=== PATIENT | female | born 1970 | race Caucasian/White ===

== ENCOUNTER 2023-11-13 22:16 | Emergency (ER) | payer SELFPAY ==
[2023-11-13] MEDS ORDERED: HYDROCODONE/APAP 10/325 TAB ONE (23:10)
[2023-11-13] MEDS ORDERED: KETOROLAC 30 MG/ML INJ ONE (23:10)
[2023-11-13 23:43] LABS: Absolute Eosinophils 0.1 K/uL (0-0.5); Absolute Lymphocytes (CBC) 1.3 K/uL (0.7-4.9); Absolute Monocytes 0.4 K/uL (0.1-1.3); Absolute Neutrophil 2.8 K/uL (1.8-8.0); Basophils % 0.5 % (0-1.3); Eosinophils % 2.7 % (0-4.4); Hematocrit 39.3 % (36.0-45.0); Hemoglobin 13.2 g/dL (12.0-15.0); Lymphocytes % 28.3 % (15.3-44.8); MCH 30.4 pg (27.0-35.0); MCHC 33.4 g/dL (32.0-36.0); MPV 10.4 fL (7.6-11.3); Monocytes % 9.3 % (3.3-12.3); Neutrophils % 59.2 % (41.7-73.7); Platelets 189 thou/uL (152-406); RBC Red Blood Cell Count 4.32 M/uL (3.86-4.86)
[2023-11-13 23:44] LABS: PT Prothrombin Time 10.6 SECONDS (9.5-12.5); Protime INR 0.96
[2023-11-13 23:56] LABS: Albumin 3.7 g/dL (3.4-5.0); Albumin/Globulin Ratio 1.2 (1.1-1.8); Anion Gap 6.6 mEq/L (5.0-15.0); Bilirubin Direct 0.1 mg/dL (0-0.2); Bilirubin Indirect, Calculated 0.2 mg/dL (0.2-0.8); Bilirubin Total 0.3 mg/dL (0.2-1.0); Potassium 3.6 mEq/L (3.5-5.1); Protein, Total 6.7 g/dL (6.4-8.2)
[2023-11-14] MEDS ORDERED: HYDROCODONE/APAP 10/325 TAB ONE (01:47)
--- NOTE | 2023-11-14 02:21 | ER ---
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 km8 Coronavirus screen: Client denies travel out of the [place] in the last 14 days. Ebola Screen: No symptoms or risks identified at this time. Initial Sepsis Screen: Does the patient meet any 2 criteria? No. Patient's initial sepsis screen is negative. Does the patient have a suspected source of infection? No. Patient's initial sepsis screen is negative. Risk Assessment: Do you want to hurt yourself or someone else? Patient reports no desire to harm self or others. Onset of symptoms was November 12, 2023. 22:38 Method Of Arrival: Ambulatory [facility] 22:38 Acuity: JOSHUA 3 km8 Triage Assessment: 22:38 General: Appears in no apparent distress. uncomfortable, Behavior is calm, cooperative, km8 appropriate for age. Pain: Complains of pain in anterior aspect of left ankle Pain currently is 8 out of 10 on a pain scale. EENT: No signs and/or symptoms were reported regarding the EENT system. Neuro: Level of Consciousness is awake, alert, obeys commands, Oriented to person, place, time, situation. Cardiovascular: Reports chest pain, shortness of breath, Patient's skin is warm and dry. Respiratory: Airway is patent Respiratory effort is even, unlabored, Respiratory pattern is regular, symmetrical. GI: No signs and/or symptoms were reported involving the gastrointestinal system. : No signs and/or symptoms were reported regarding the genitourinary system. Derm: Skin is intact, is healthy with good turgor, Skin is dry, Skin is pink, warm \T\ dry. normal, Skin temperature is warm. Musculoskeletal: Range of motion: intact in all extremities, Swelling present in anterior aspect of left ankle. 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 - Infectious Disease History:: Denies. - Social history:: Smoking status: Patient denies any tobacco usage or history of. Patient/guardian denies using alcohol, street drugs. - Family history:: not pertinent. Screenin:38 [facility] ED Fall Risk Assessment (Adult) History of falling in the last 3 months, 8 including since admission No falls in past 3 months (0 pts) Confusion or Disorientation No (0 pts) Intoxicated or Sedated No (0 pts) Impaired Gait No (0 pts) Mobility Assist Device Used No (0 pt) Altered Elimination No (0 pt) Score/Fall Risk Level 0 - 2 = Low Risk Oriented to surroundings, Maintained a safe environment, Educated pt \T\ family on fall prevention, incl call for assistance when getting out of bed, Assessed \T\ reinforced patient's understanding of fall precautions. Abuse screen: Denies threats or abuse. Denies injuries from another. Nutritional screening: No deficits noted. Tuberculosis screening: No symptoms or risk factors identified. Assessment: 22:38 Reassessment: see triage assessment. [facility] 11/13 00:00 General: Appears in no apparent distress. uncomfortable, Behavior is calm, cooperative, vc1 appropriate for age. Pain: Complains of pain in left leg and anterior aspect of left ankle Pain does not radiate. Quality of pain is described as pressure, sharp, tender, Pain began suddenly. Neuro: Level of Consciousness is awake, alert, obeys commands, Oriented to person, place, time, situation, Appropriate for age. Cardiovascular: Capillary refill < 3 seconds Patient's skin is warm and dry. Respiratory: Airway is patent Respiratory effort is even, unlabored, Respiratory pattern is regular, symmetrical. GI: No deficits noted. No signs and/or symptoms were reported involving the gastrointestinal system. : No deficits noted. No signs and/or symptoms were reported regarding the genitourinary system. EENT: No deficits noted. No signs and/or symptoms were reported regarding the EENT system. Derm: Skin is intact, is healthy with good turgor, Skin is dry, Skin is pink, warm \T\ dry. Skin temperature is warm. Musculoskeletal: Reports pain in anterior aspect of left ankle and left leg. 02:48 Reassessment: Patient and/or family updated on plan of care and expected duration. Pain vc1 level reassessed. Patient is alert, oriented x 3, equal unlabored respirations, skin warm/dry/pink. Patient states symptoms have improved. Vital Signs: 11/12 22:38 BP 133 / 81; Pulse 69; Resp 16; Temp 96.9(TE); Pulse Ox 99% on R/A; Weight 68.04 kg km8 (R); Height 5 ft. 4 in. (R); Pain 8/; 11/13 02:30 BP 130 / 78; Pulse 65; Resp 16; Temp 97.3; Pulse Ox 100% ; vc1 11/12 22:38 Body Mass Index 25.75 (68.04 kg, 162.56 cm) km8 04 22:38 Pain Scale: Adult km8 [place] Coma Score: 11/12 22:38 Eye Response: spontaneous(4). Motor Response: obeys commands(6). Verbal Response: km8 oriented(5). Total: 15. 11/13 06:34 Eye Response: spontaneous(4). Motor Response: obeys commands(6). Verbal Response: sp4 oriented(5). Total: 15. ED Course: 11/12 22:17 Patient arrived in ED. jj6 22:23 Roman Kerr MD is Attending Physician. sp4 22:38 Arm band placed on right wrist. km8 22:38 Patient has correct armband on for positive identification. Bed in low position. Call km8 light in reach. Side rails up X 1. Pulse ox on. NIBP on. 22:39 Triage completed. km8 23:07 Extremity Venous Uni Ltd US In Process Unspecified. EDMS 23:13 Inserted saline lock: 22 gauge in right antecubital area, using aseptic technique. oe Blood collected. 11/13 02:45 Provided Education on: medication. vc1 02:47 No provider procedures requiring assistance completed. IV discontinued, intact, vc1 bleeding controlled, No redness/swelling at site. Pressure dressing applied. Administered Medications: 11/12 23:14 Drug: Ketorolac IVP 30 mg IVP once Route: IVP; Site: right antecubital; vc1 11/13 00:00 Follow up: Response: No adverse reaction; Marked relief of symptoms vc1 11/12 23:14 Drug: [place] PO 10 mg-325 mg 1 tabs PO once Route: PO; vc1 11/13 00:00 Follow up: Response: No adverse reaction; No change in condition vc1 01:45 Drug: [place] PO 10 mg-325 mg 1 tabs PO once Route: PO; vc1 02:30 Follow up: Response: No adverse reaction; Marked relief of symptoms; Pain is decreased vc1 Medication: 02:48 VIS not applicable for this client. vc1 Outcome: 02:21 Discharge ordered by MD. montoya 02:45 Discharged to home ambulatory, with significant other, vc1 02:45 Condition: good vc1 02:45 Discharge instructions given to patient, Instructed on discharge instructions, follow up and referral plans. medication usage, Demonstrated understanding of instructions, follow-up care, medications, Prescriptions given X 2, 02:48 Patient left the ED. vc1 Signatures: Dispatcher [employer] EDMS Rodrigo Luque Jennifer jj6 Marilyn Cardenas RN RN vc1 Roman Kerr MD MD sp4 Shaye Boston RN RN km8
--- NOTE | 2023-11-14 02:21 | EDPHYS ---
Physician Documentation [facility] Name: Dori Orozco Age: 53 yrs Sex: Female : 1970 Arrival Date: 11/13/2023 Time: 22:16 Bed 11 Private MD: ED Physician Roman Kerr HPI: 11/12 22:23 This 53 yrs old Female presents to ER via Unassigned with complaints of Leg sp4 Swelling, Leg Pain. 11/13 06:34 53-year-old female history of varicose veins presents with acute worsening of left sp4 lower extremity pain about the left ankle associated with varicose veins. Patient also has history of varicose vein stripping done remotely. . 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 - Infectious Disease History:: Denies. - Social history:: Smoking status: Patient denies any tobacco usage or history of. Patient/guardian denies using alcohol, street drugs. - Family history:: not pertinent. ROS: 11/13 06:34 Constitutional: Negative for fever, chills, and weight loss, positive for left lower sp4 extremity pain associated with varicose veins All other systems are negative, Exam: 06:34 Constitutional: This is a well developed, well nourished patient who is awake, alert, sp4 and in no acute distress. Head/Face: Normocephalic, atraumatic. Eyes: Pupils equal round and reactive to light, extra-ocular motions intact. Lids and lashes normal. Conjunctiva and sclera are not injected. Cornea within normal limits. Periorbital areas with no swelling, redness, or edema. ENT: Nares patent. No nasal discharge, no septal abnormalities noted. Tympanic membranes are normal and external auditory canals are clear. Oropharynx with no redness, swelling, or masses, exudates, or evidence of obstruction, uvula midline. Mucous membranes moist. Neck: Trachea midline, no thyromegaly or masses palpated, and no cervical lymphadenopathy. Supple, full range of motion without nuchal rigidity, or vertebral point tenderness. Chest/axilla: Normal chest wall appearance and motion. Nontender with no deformity. No lesions are appreciated. Cardiovascular: Regular rate and rhythm with a normal S1 and S2. No gallops, murmurs, or rubs. Normal PMI, no JVD. No pulse deficits. Respiratory: Lungs have equal breath sounds bilaterally, clear to auscultation and percussion. No rales, rhonchi or wheezes noted. No increased work of breathing, no retractions or nasal flaring. Abdomen/GI: Soft, with normal bowel sounds. No distension or tympany. No guarding or rebound. No evidence of tenderness throughout. Back: No spinal tenderness. No costovertebral tenderness. Skin: Warm, dry with normal turgor. Normal color with no rashes, no lesions, and no evidence of cellulitis. MS/ Extremity: Pulses equal, no cyanosis. Neurovascular intact. Full, normal range of motion. Positive extensive network of varicose veins to bilateral lower extremity. Left lower anterior ankle area of pain without deformity, without swelling, without cellulitic changes, without signs of thrombophlebitis. Neuro: Awake and alert, GCS 15, oriented to person, place, time, and situation. Cranial nerves II-XII grossly intact. Motor strength 5/5 in all extremities. Sensory grossly intact. Psych: Awake, alert, with orientation to person, place and time. Behavior, mood, and affect are within normal limits Vital Signs: 11/12 22:38 BP 133 / 81; Pulse 69; Resp 16; Temp 96.9(TE); Pulse Ox 99% on R/A; Weight 68.04 kg 8 (R); Height 5 ft. 4 in. (R); Pain 8/; 11/13 02:30 BP 130 / 78; Pulse 65; Resp 16; Temp 97.3; Pulse Ox 100% ; vc1 11/12 22:38 Body Mass Index 25.75 (68.04 kg, 162.56 cm) [facility] 11/12 22:38 Pain Scale: Adult [facility] Phoebe Coma Score: 11/12 22:38 Eye Response: spontaneous(4). Motor Response: obeys commands(6). Verbal Response: km oriented(5). Total: 15. 04/22 06:34 Eye Response: spontaneous(4). Motor Response: obeys commands(6). Verbal Response: sp4 oriented(5). Total: 15. MDM: 11/12 22:37 Patient medically screened. sp4 11/13 02:20 ED course: EXAM: US Duplex Left Lower Extremity Veins CLINICAL HISTORY: The patient is sp4 53 years old and is Female; left lower leg pain , rule out DVT TECHNIQUE: Real-time duplex ultrasound scan of the left lower extremity veins integrating B-mode two-dimensional vascular structure, Doppler spectral analysis, color flow Doppler imaging and Impression. COMPARISON: No relevant prior studies available. FINDINGS: Deep veins: Unremarkable. No DVT in the visualized common femoral, femoral, or popliteal veins. The veins demonstrate normal color flow, are normally compressible where visualized, with normal phasic flow and/or augmentation response. Soft tissues: No acute findings. IMPRESSION: No evidence of DVT in the left lower extremity veins. . 06:37 Differential diagnosis: contusion, abrasion, tendonitis. Data reviewed: vital signs, sp4 nurses notes. Consideration of Admission/Observation Escalation of care including admission/observation considered. ED course: DVT was ruled out on ultrasound. Patient will be referred to a vascular surgeon at [facility] for her lower extremity varicosities. . 11/12 22:40 Order name: Basic Metabolic Panel; Complete Time: 02:18 sp4 11/12 22:40 Order name: CBC with Diff; Complete Time: 02:18 sp4 11/12 22:40 Order name: LFT's; Complete Time: 02:18 sp4 11/12 22:40 Order name: PT-INR; Complete Time: 02:18 sp4 11/12 22:41 Order name: Extremity Venous Uni Ltd sp4 11/12 22:40 Order name: IV Saline Lock; Complete Time: 23:14 sp4 11/12 22:40 Order name: Labs collected and sent; Complete Time: 23:14 sp4 Administered Medications: 11/12 23:14 Drug: Ketorolac IVP 30 mg IVP once Route: IVP; Site: right antecubital; vc1 11/13 00:00 Follow up: Response: No adverse reaction; Marked relief of symptoms vc1 11/12 23:14 Drug: [place] PO 10 mg-325 mg 1 tabs PO once Route: PO; vc1 11/13 00:00 Follow up: Response: No adverse reaction; No change in condition vc1 01:45 Drug: [place] PO 10 mg-325 mg 1 tabs PO once Route: PO; vc1 02:30 Follow up: Response: No adverse reaction; Marked relief of symptoms; Pain is decreased vc1 Disposition Summary: 11/14/23 02:21 Discharge Ordered Notes: Location: Home sp4 Problem: new sp4 Symptoms: have improved sp4 Condition: Stable sp4 Diagnosis - 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 sp4 - Varicose veins of left lower extremities with pain sp4 Followup: sp4 - With: Private Physician - When: 7 - 10 days - Reason: Recheck today's complaints Discharge Instructions: - Discharge Summary Sheet sp4 - Varicose Veins sp4 Forms: - Work release form vc1 - Patient Portal Instructions sp4 Prescriptions: - meloxicam 15 mg Oral tablet - take 1 tablet ORAL route daily; 30 tablet; Refills: 0, Product Selection sp4 Permitted - Tramadol 50 mg Oral tablet - take 1 tablet ORAL route every 8 hours as needed; 30 tablet; Refills: 0, sp4 Product Selection Permitted Signatures: Dispatcher [employer] Marilyn Browning RN RN vc1 Roman Kerr MD MD sp4 Shaye Boston RN RN km8 Corrections: (The following items were deleted from the chart) 11/12 22:42 22:41 Extremity Venous Uni Ltd+[email or web address] ordered. EDMS EDMS
[2023-11-14 02:58] VITALS: BP 133/81; TEMP 96.9; O2SAT 99
--- NOTE | 2023-11-14 10:42 | RAD REPORT ---
EXAM DESCRIPTION: US - Extremity Venous Uni Ltd - 11/13/2023 11:05 pm CLINICAL HISTORY: The patient is 53 years old and is Female; left lower leg pain , rule out DVT TECHNIQUE: Real-time duplex ultrasound scan of the left lower extremity veins integrating B-mode two -dimensional vascular structure, Doppler spectral analysis, color flow Doppler imaging and Impression . COMPARISON: No relevant prior studies available. FINDINGS: Deep veins: Unremarkable. No DVT in the visualized common femoral, femoral, or poplite al veins. The veins demonstrate normal color flow, are normally compressible where visualized, with normal phasic flow and/or augmentation response. Soft tissues: No acute findings. IMPRESSION: No evidence of DVT in the left lower extremity veins. Electronically signed by: Denilson Issa MD 11/13/2023 11:15 PM CDT Due to temporary technical issues with the PACS/Fluency reporting system, reports are being signed by the in house radiologist without review as a courtesy to ensure prompt reporting. The interpreting r adiologist is fully responsible for the content of the report.
== END 2023-11-14 02:48 | disposition home or self-care (01) ==
LOC: ER 22:16
DX: I83.812 Varicose veins of left lower extremity with pain (principal); I83.892 Varicose veins of left lower extremity with other complications
CPT/HCPCS: 36415; 80048; 80076; 85025; 85610; 93971; 96374; 99284

== ENCOUNTER 2024-05-31 06:27 | Emergency (ER) | payer BC ==
[2024-05-31] MEDS ORDERED: ONDANSETRON 4 MG/2 ML VIAL ONE (06:54)
[2024-05-31 06:55] LABS: Absolute Eosinophils 0.1 K/uL (0-0.5); Absolute Lymphocytes (CBC) 0.7 K/uL (0.7-4.9); Absolute Monocytes 0.4 K/uL (0.1-1.3); Absolute Neutrophil 1.6 K/uL (1.8-8.0); Basophils % 0.5 % (0-1.3); Hematocrit 41.1 % (36.0-45.0); Lymphocytes % 24.2 % (15.3-44.8); MCH 30.8 pg (27.0-35.0); MCHC 34.1 g/dL (32.0-36.0); MCV 90.5 fL (80-100); MPV 10.2 fL (7.6-11.3); Monocytes % 14.3 % (3.3-12.3); Nucleated Red Blood Cells % 0.1 % (0-0); Platelets 156 thou/uL (152-406); RBC Red Blood Cell Count 4.54 M/uL (3.86-4.86); Red Cell Distribution Width 12.9 % (12.1-15.2)
[2024-05-31] MEDS ORDERED: ACETAMINOPHEN 500 MG TAB ONE (06:55)
[2024-05-31] MEDS ORDERED: DICYCLOMINE HCL 20 MG/2 ML AMP IM ONE (06:55)
[2024-05-31] MEDS ORDERED: DIPHENHYDRAMINE 50 MG/ML VIAL ONE (06:55)
[2024-05-31] MEDS ORDERED: KETOROLAC 30 MG/ML INJ ONE (06:55)
[2024-05-31] MEDS ORDERED: DIPHENOX/ATROP SULF 1 TAB PO ONE (06:56)
[2024-05-31] MEDS ORDERED: FAMOTIDINE 20 MG/2 ML VIAL IV ONE (06:56)
[2024-05-31] MEDS ORDERED: NA CHLORIDE 0.9% 1,000 ML ONE (06:56)
[2024-05-31 07:12] LABS: Albumin 3.3 g/dL (3.4-5.0); Bilirubin Total 0.5 mg/dL (0.2-1.0); Globulin 3.2 g/dL (2.3-3.5); Protein, Total 6.5 g/dL (6.4-8.2)
[2024-05-31] MEDS ORDERED: POTASSIUM 25 MEQ EFFERV TAB ONE (07:45)
--- NOTE | 2024-05-31 07:46 | ER ---
Nurse's Notes [facility] Name: Dori Orozco Age: 54 yrs Sex: Female : 1970 Arrival Date: 05/31/2024 Time: 06:27 Bed 15 Private MD: Diagnosis: Nausea with vomiting, unspecified;Diarrhea, unspecified;Hypokalemia Presentation: 05/31 06:30 Chief complaint: Patient states: nausea/vomiting, abdominal pain. Coronavirus screen: kj2 At this time, the client does not indicate any symptoms associated with coronavirus-19. Ebola Screen: No symptoms or risks identified at this time. Initial Sepsis Screen: Does the patient meet any 2 criteria? No. Patient's initial sepsis screen is negative. Does the patient have a suspected source of infection? No. Patient's initial sepsis screen is negative. Risk Assessment: Do you want to hurt yourself or someone else? Patient reports no desire to harm self or others. Onset of symptoms was May 29, 2024. 06:30 Method Of Arrival: Ambulatory [facility] 06:30 Acuity: JOSHUA 3 kj2 Triage Assessment: 06:43 General: Appears uncomfortable, Behavior is cooperative. Pain: Complains of pain in kj2 abdominal pain Pain currently is 8 out of 10 on a pain scale. Neuro: Level of Consciousness is awake, alert, obeys commands, Oriented to person, place, time, situation. Cardiovascular: Patient's skin is warm and dry. Respiratory: Airway is patent Respiratory effort is even, unlabored. GI: Reports nausea, vomiting. 06:45 : No signs and/or symptoms were reported regarding the genitourinary system. 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 - Infectious Disease History:: Denies. - Social history:: Patient/guardian denies using alcohol, street drugs, IV drugs, caffeine, over the counter diet medications, tobacco products, Smoking status: Patient denies any tobacco usage or history of. - Family history:: not pertinent. Screenin:46 [facility] ED Fall Risk Assessment (Adult) History of falling in the last 3 months, kj2 including since admission No falls in past 3 months (0 pts) Confusion or Disorientation No (0 pts) Intoxicated or Sedated No (0 pts) Impaired Gait No (0 pts) Mobility Assist Device Used No (0 pt) Altered Elimination No (0 pt) Score/Fall Risk Level 0 - 2 = Low Risk Maintained a safe environment, Hourly rounding (assess needs \T\ fall precautionary measures) done. Abuse screen: Denies threats or abuse. Denies injuries from another. Nutritional screening: No deficits noted. Tuberculosis screening: No symptoms or risk factors identified. Assessment: 06:46 General: SEE TRIAGE. GI: Reports nausea, vomiting. kj2 07:50 Reassessment: PT DC PENDING IV SALINE BOLUS FINISH. db 07:51 Reassessment: Patient appears in no apparent distress at this time. Patient and/or db family updated on plan of care and expected duration. Pain level reassessed. Patient is alert, oriented x 3, equal unlabored respirations, skin warm/dry/pink. Reassessment: Patient appears in no apparent distress at this time. Patient and/or family updated on plan of care and expected duration. Pain level reassessed. Patient is alert, oriented x 3, equal unlabored respirations, skin warm/dry/pink. Patient states symptoms have improved. Neuro: Level of Consciousness is awake, alert, obeys commands, Oriented to person, place, time, situation. Respiratory: Airway is patent Respiratory effort is even, unlabored, Respiratory pattern is regular, symmetrical. GI: Abdomen is flat, non-distended. 08:46 Reassessment: Patient appears in no apparent distress at this time. Patient and/or db family updated on plan of care and expected duration. Pain level reassessed. Patient is alert, oriented x 3, equal unlabored respirations, skin warm/dry/pink. Patient states feeling better. Patient states symptoms have improved. Vital Signs: 06:30 BP 120 / 67; Pulse 83; Resp 18; Temp 97.8; Pulse Ox 98% on R/A; kj2 06:42 BP 120 / 67; Pulse 83; Resp 18; Temp 97.8; Pulse Ox 98% on R/A; kj2 07:27 BP 105 / 62; Pulse 70; Resp 16; Pulse Ox 100% on R/A; kj2 08:30 BP 100 / 66; Pulse 67; Resp 18; Pulse Ox 96% ; db Phoebe Coma Score: 06:51 Eye Response: spontaneous(4). Motor Response: obeys commands(6). Verbal Response: sp4 oriented(5). Total: 15. ED Course: 06:28 Patient arrived in ED. jj6 06:31 Sonia Nation RN is Primary Nurse. kj2 06:36 Roman Kerr MD is Attending Physician. sp4 06:42 Triage completed. kj2 06:47 Patient has correct armband on for positive identification. Placed in gown. Bed in low kj2 position. Call light in reach. Side rails up X 1. Provided Education on: call light. 06:47 Arm band placed on Patient placed in an exam room, on a stretcher. kj2 06:47 Inserted saline lock: 22 gauge in right antecubital area, using aseptic technique. oe Blood collected. Flushed with 10 mL NS. 07:04 Attending Physician role handed off by Roman Kerr MD ms3 07:04 Hemanth Cole DO is Attending Physician. ms3 07:27 Report given to AAKASH Monsalve. kj2 07:45 Vitaliy Harry DO is Referral Physician. ms3 08:46 Warm blanket given. db 08:46 No provider procedures requiring assistance completed. IV discontinued, intact, db bleeding controlled, No redness/swelling at site. Administered Medications: 07:13 Drug: NS 0.9% IV 1000 ml IV at 1 bolus Per protocol; to be given as a bolus over 60 kj2 minutes Route: IV; Rate: 1 bolus; Site: right antecubital; 08:47 Follow up: Response: No adverse reaction; IV Status: Completed infusion; IV Intake: db 1000ml 07:15 Drug: Diphenoxylate-Atropine PO 2 tabs PO once Route: PO; kj2 08:47 Follow up: Response: No adverse reaction db 07:15 Drug: Acetaminophen PO 1000 mg PO once Route: PO; kj2 08:47 Follow up: Response: No adverse reaction; Pain is decreased db 07:16 Drug: Ketorolac IVP 30 mg IVP once Route: IVP; Site: right antecubital; kj2 07:51 Follow up: Response: No adverse reaction; Pain is decreased db 07:16 Not Given (Patient Refused): vkhrxpijllzfnci95.5 mg IVP once kj2 07:17 Drug: Famotidine IVP 20 mg IVP once; dilute with 10 mL 0.9% NaCl; give over 2 minutes kj2 Route: IVP; Site: right antecubital; 07:51 Follow up: Response: No adverse reaction db 07:17 Drug: Dicyclomine IM 20 mg IM once Route: IM; Site: left deltoid; kj2 07:51 Follow up: Response: No adverse reaction; Pain is decreased db 07:18 Drug: Ondansetron IVP 8 mg IVP once; over 2 minutes Route: IVP; Site: right antecubital;kj2 07:51 Follow up: Response: No adverse reaction; Nausea is decreased db 07:21 CANCELLED (Duplicate Order): sjjxiozsaggbnwl66.5 mg IVP once kj2 07:26 Drug: diphenhydrAMINE IVP 12.5 mg IVP once Route: IVP; Site: right antecubital; kj2 08:48 Follow up: Response: No adverse reaction db 07:46 Drug: Potassium PO Effervescent Tablet 50 mEq PO once; dissolve in 4 ounces of water or db juice Route: PO; 08:47 Follow up: Response: No adverse reaction db Medication: 06:47 VIS not applicable for this client. kj2 Intake: 08:47 IV: 1000ml; Total: 1000ml. db Outcome: 07:45 Discharge ordered by . ms3 08:46 Discharged to home ambulatory, db 08:46 Condition: stable 08:46 Discharge instructions given to patient, Instructed on discharge instructions, follow up and referral plans. Prescriptions given X 1, 08:48 Patient left the ED. db Signatures: Rodrigo Luque Marcus, DO DO ms3 Umu Junior jj6 Gricel Yarbrough, RN RN db Roman Kerr MD MD sp4 Sonia Nation, AAKASH RN kj2
--- NOTE | 2024-05-31 07:46 | EDPHYS ---
Physician Documentation [facility] Name: Dori Orozco Age: 54 yrs Sex: Female : 1970 Arrival Date: 05/31/2024 Time: 06:27 Bed 15 Private MD: ED Physician Hemanth Cole HPI: 05/31 06:36 This 54 yrs old Female presents to ER via Unassigned with complaints of sp4 Nausea/Vomiting/Diarrhea, Abdominal Pain. 06:51 This is 54-year-old female presents with acute onset of nausea vomiting diarrhea and sp4 abdominal ache. Reports concurrent headache as well. Reports feeling feverish. 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 - Infectious Disease History:: Denies. - Social history:: Patient/guardian denies using alcohol, street drugs, IV drugs, caffeine, over the counter diet medications, tobacco products, Smoking status: Patient denies any tobacco usage or history of. - Family history:: not pertinent. ROS: 06:51 Constitutional: Negative for chills, and weight loss, positive nausea vomiting sp4 diarrhea and abdominal ache. Positive headache, positive subjective fever 06:51 All other systems are negative, Exam: 06:51 Constitutional: This is a well developed, well nourished patient who is awake, alert, sp4 and in no acute distress. Head/Face: Normocephalic, atraumatic. Eyes: Pupils equal round and reactive to light, extra-ocular motions intact. Lids and lashes normal. Conjunctiva and sclera are not injected. Cornea within normal limits. Periorbital areas with no swelling, redness, or edema. ENT: Nares patent. No nasal discharge, no septal abnormalities noted. Tympanic membranes are normal and external auditory canals are clear. Oropharynx with no redness, swelling, or masses, exudates, or evidence of obstruction, uvula midline. Mucous membranes moist. Neck: Trachea midline, no thyromegaly or masses palpated, and no cervical lymphadenopathy. Supple, full range of motion without nuchal rigidity, or vertebral point tenderness. Chest/axilla: Normal chest wall appearance and motion. Nontender with no deformity. No lesions are appreciated. Cardiovascular: Regular rate and rhythm with a normal S1 and S2. No gallops, murmurs, or rubs. Normal PMI, no JVD. No pulse deficits. Respiratory: Lungs have equal breath sounds bilaterally, clear to auscultation and percussion. No rales, rhonchi or wheezes noted. No increased work of breathing, no retractions or nasal flaring. Abdomen/GI: Soft, with normal bowel sounds. No distension or tympany. No guarding or rebound. No evidence of tenderness throughout. Back: No spinal tenderness. No costovertebral tenderness. Skin: Warm, dry with normal turgor. Normal color with no rashes, no lesions, and no evidence of cellulitis. MS/ Extremity: Pulses equal, no cyanosis. Neurovascular intact. Full, normal range of motion. Neuro: Awake and alert, GCS 15, oriented to person, place, time, and situation. Cranial nerves II-XII grossly intact. Motor strength 5/5 in all extremities. Sensory grossly intact. Psych: Awake, alert, with orientation to person, place and time. Behavior, mood, and affect are within normal limits Vital Signs: 06:30 BP 120 / 67; Pulse 83; Resp 18; Temp 97.8; Pulse Ox 98% on R/A; kj2 06:42 BP 120 / 67; Pulse 83; Resp 18; Temp 97.8; Pulse Ox 98% on R/A; kj2 07:27 BP 105 / 62; Pulse 70; Resp 16; Pulse Ox 100% on R/A; kj2 08:30 BP 100 / 66; Pulse 67; Resp 18; Pulse Ox 96% ; db Phoebe Coma Score: 06:51 Eye Response: spontaneous(4). Motor Response: obeys commands(6). Verbal Response: sp4 oriented(5). Total: 15. MDM: 06:36 Medical Screening Exam initiated sp4 06:53 Differential diagnosis: Nonspecific abd pain, gastritis, pancreatitis, viral sp4 gastroenteritis, gastroenteritis. Data reviewed: vital signs, nurses notes, lab test result(s). Consideration of Admission/Observation Escalation of care including admission/observation considered. Transition of care: After a detail discussion of the patient's case, care is transferred to Hemanth Cole DO. 07:04 Transition of care: Care assumed from Roman Kerr MD. ED course: Care received ms3 from Dr Tomas Patient with N/V for a few days. Patient pending medications and labs.. 07:50 I considered the following discharge prescriptions or medication management in the ms3 emergency department Medications were administered in the Emergency Department. See MAR. Counseling: I had a detailed discussion with the patient and/or guardian regarding the historical points, exam findings, and any diagnostic results supporting the discharge/admit diagnosis, lab results, the need for outpatient follow up, to return to the emergency department if symptoms worsen or persist or if there are any questions or concerns that arise at home. Special discussion: Based on the patient's Hx, exam, and Dx evaluation, there is no indication for emergent surgery or inpatient Tx. It is understood by the patient/guardian that if the Sx's persist or worsen they need to return immediately for re-evaluation. ED course: Discussed patient's labs with patient. Patient with white blood count of 2.9 with other cell lines normal. Patient's potassium 3.0. Patient's potassium replaced in the emergency department with 50 mill equivalents potassium bicarbonate. The patient tolerating p.o. in the emergency department, abdominal exam is benign. Patient to follow-up with primary care physician in 2 to 3 days. Patient understands and agrees with plan. All questions were answered. Return precautions discussed include worsening symptoms, or any other concerns.. 05/31 06:36 Order name: CBC with Diff sp4 05/31 06:36 Order name: CMP; Complete Time: 07:37 sp4 05/31 06:36 Order name: Lipase; Complete Time: 07:37 sp4 05/31 06:36 Order name: IV Saline Lock; Complete Time: 06:48 sp4 05/31 06:36 Order name: Labs collected and sent; Complete Time: 06:48 sp4 Administered Medications: 07:13 Drug: NS 0.9% IV 1000 ml IV at 1 bolus Per protocol; to be given as a bolus over 60 kj2 minutes Route: IV; Rate: 1 bolus; Site: right antecubital; 08:47 Follow up: Response: No adverse reaction; IV Status: Completed infusion; IV Intake: db 1000ml 07:15 Drug: Diphenoxylate-Atropine PO 2 tabs PO once Route: PO; kj2 08:47 Follow up: Response: No adverse reaction db 07:15 Drug: Acetaminophen PO 1000 mg PO once Route: PO; kj2 08:47 Follow up: Response: No adverse reaction; Pain is decreased db 07:16 Drug: Ketorolac IVP 30 mg IVP once Route: IVP; Site: right antecubital; kj2 07:51 Follow up: Response: No adverse reaction; Pain is decreased db 07:16 Not Given (Patient Refused): [id number] mg IVP once kj2 07:17 Drug: Famotidine IVP 20 mg IVP once; dilute with 10 mL 0.9% NaCl; give over 2 minutes kj2 Route: IVP; Site: right antecubital; 07:51 Follow up: Response: No adverse reaction db 07:17 Drug: Dicyclomine IM 20 mg IM once Route: IM; Site: left deltoid; kj2 07:51 Follow up: Response: No adverse reaction; Pain is decreased db 07:18 Drug: Ondansetron IVP 8 mg IVP once; over 2 minutes Route: IVP; Site: right antecubital;kj2 07:51 Follow up: Response: No adverse reaction; Nausea is decreased db 07:21 CANCELLED (Duplicate Order): [id number] mg IVP once kj2 07:26 Drug: diphenhydrAMINE IVP 12.5 mg IVP once Route: IVP; Site: right antecubital; kj2 08:48 Follow up: Response: No adverse reaction db 07:46 Drug: Potassium PO Effervescent Tablet 50 mEq PO once; dissolve in 4 ounces of water or db juice Route: PO; 08:47 Follow up: Response: No adverse reaction db Disposition Summary: 05/31/24 07:45 Discharge Ordered Notes: Location: Home ms3 Condition: Stable ms3 Diagnosis - Nausea with vomiting, unspecified ms3 - Diarrhea, unspecified ms3 - Hypokalemia ms3 Followup: ms3 - With: Vitaliy Harry DO - When: 2 - 3 days - Reason: Recheck today's complaints Discharge Instructions: - Discharge Summary Sheet ms3 - Food Choices to Help Relieve Diarrhea, Adult ms3 - Diarrhea, Adult ms3 - Potassium Content of Foods ms3 - Nausea and Vomiting, Adult ms3 Forms: - Medication Reconciliation Form ms3 - Antibiotic Education ms3 - Prescription Opioid Use ms3 - Patient Portal Instructions ms3 - Leadership Thank You Letter ms3 - Work release form db Prescriptions: - ondansetron 4 mg Oral Tablet,disintegrating - take 1 tablet ORAL route every 8 hours; 15 tablet; Refills: 0, Product ms3 Selection Permitted Signatures: Dispatcher [employer] EDMS Hemanth Cole, DO ms3 Gricel Yarbrough RN RN db Roman Kerr MD MD sp4 Sonia Nation RN RN kj2 Corrections: (The following items were deleted from the chart) 06:37 06:37 CBC+H.LAB.BRZ ordered. EDMS EDMS 06:37 06:37 COMPREHENSIVE METABOLIC PANEL+C.LAB.BRZ ordered. EDMS EDMS 06:37 06:37 LIPASE+C.LAB.BRZ ordered. EDMS EDMS 07:21 07:21 diphenhydrAMINE IVP 12.5 mg IVP once ordered. kj2 kj2
[2024-05-31 09:11] VITALS: TEMP 97.8
[2024-05-31 09:15] VITALS: BP 100/66; O2SAT 96
[2024-05-31 09:28] LABS: Blood Morphology Comment NOT SEEN (NOT SEEN); Platelet Estimate ADEQ; White Blood Cell Scan OK (OK)
== END 2024-05-31 08:48 | disposition home or self-care (01) ==
LOC: ER 06:27
DX: E87.6 Hypokalemia (principal); R19.7 Diarrhea, unspecified; Z11.52 Encounter for screening for COVID-19
CPT/HCPCS: 96361; 85025; 36415; 83690; 80053; 96375; 96372; 96374; 99284; J0500; J1200; J2405; J7030